=== PATIENT | male | born 1975 | race Caucasian/White ===

== ENCOUNTER 2019-09-07 09:11 | Outpatient (CLI) | payer BC, SELFPAY ==
[2019-09-07 09:29] LABS: Basophils Absolute Auto 0.04 K/mm3 (0.00-0.10); Basophils Percent Auto 0.8 % (0.0-1.0); Eosinophils Absolute Auto 0.23 K/mm3 (0.02-0.50); Eosinophils Percent Auto 4.5 % (1.0-6.0); Hematocrit 44.3 % (40.0-54.0); Hemoglobin 15.9 g/dL (14.0-18.0); Immature Granulocyte Absolute 0.03 K/mm3 (0.00-0.00); Immature Granulocyte Percent A 0.6 % (0.0-0.0); Lymphocytes Absolute Auto 1.37 K/mm3 (1.10-4.50); Mean Corpuscular HGB Conc 35.9 g/dL (32.0-36.0); Mean Corpuscular Hemoglobin 29.9 pg (27.0-31.0); Mean Corpuscular Volume 83.4 fL (78.0-102.0); Mean Platelet Volume 10.1 fl (8.7-11.0); Monocytes Absolute Auto 0.48 K/mm3 (0.10-0.90); Monocytes Percent Auto 9.4 % (2.0-11.0); Neutrophils Absolute Auto 2.9 K/mm3 (1.7-7.2); Neutrophils Percent Auto 57.7 % (50.0-70.0); Platelet Count Result 185 K/mm3 (150-420); Red Blood Count 5.31 M/mm3 (4.70-6.10); Red Cell Distribution Width 12.2 % (11.6-14.4); White Blood Count 5.1 K/mm3 (4.8-10.8)
[2019-09-07 09:30] LABS: Add Urine Microscopic? NO; Appearance Urine Clear (Clear); Bilirubin Urine Negative (Negative); Blood Urine Negative (Negative); Color Urine Yellow (Yellow); Glucose Urine UA Negative (Negative); Ketones Urine Negative (Negative); Leukocyte Esterase Ur Negative (Negative); Nitrate Urine Negative (Negative); Protein Urine Negative (Negative); Urobilinogen Urine 0.2 mg/dL (0.2-1.0)
[2019-09-07 11:11] LABS: Alanine Aminotransferase 54 U/L (16-63); Albumin Level 4.1 g/dL (3.4-5.0); Alkaline Phosphatase 84 U/L (46-116); Anion Gap 12.5 mmol/L (7-16); Aspartate Amino Transferase 26 U/L (15-37); Bilirubin,Total 0.5 mg/dL (0.00-1.00); Blood Urea Nitrogen 15 mg/dL (7-18); Calcium 8.8 mg/dL (8.5-10.1); Carbon Dioxide 30 mmol/L (21-32); Chloride 105 mmol/L (98-108); Cholesterol 178 mg/dL (0-200); Estimated Glomerular Filt Rate > 60; Glucose 103 mg/dL (70-99); HDL Direct 24 mg/dL (40-60); Osmolality Calculated 296 mOsm/kg (285-295); Potassium 4.5 mmol/L (3.5-5.1); Sodium 143 mmol/L (136-145); Thyroid Stimulating Hormone 2.28 uIU/mL (0.36-3.74); Total Protein 6.8 g/dL (6.4-8.2)
[2019-09-07 11:12] LABS: LDL Cholesterol Calculated 33 mg/dL (<130); Triglycerides 607 mg/dL (0-150)
[2019-09-07 11:13] LABS: LDL Cholesterol Direct 59 mg/dL (0-130)
== END 2019-09-07 09:12 | disposition home or self-care (01) ==
PROVIDERS: PCP Internal Medicine; Visit Provider Internal Medicine
DX: Z00.00 Encounter for general adult medical examination without abnormal findings (principal); F41.9 Anxiety disorder, unspecified; J45.909 Unspecified asthma, uncomplicated
CPT/HCPCS: 36415; 80053; 80061; 81003; 83721; 84443; 85025

== ENCOUNTER 2020-05-27 11:28 | Outpatient (CLI) | payer BC, SELFPAY ==
[2020-05-27 12:08] LABS: SARS-CoV-2 Ag Positive (Negative)
== END 2020-05-27 11:29 | disposition home or self-care (01) ==
LOC: CHSLAB 11:31
PROVIDERS: PCP Internal Medicine; Visit Provider Internal Medicine
DX: U07.1 COVID-19 (principal)
CPT/HCPCS: 87426; C9803

== ENCOUNTER 2021-12-04 08:10 | Outpatient (CLI) | payer BC, SELFPAY ==
[2021-12-04 08:29] LABS: Basophils Absolute Auto 0.03 K/mm3 (0.00-0.10); Basophils Percent Auto 0.6 % (0.0-1.0); Eosinophils Absolute Auto 0.16 K/mm3 (0.02-0.50); Eosinophils Percent Auto 3.4 % (1.0-6.0); Hematocrit 43.6 % (40.0-54.0); Hemoglobin 15.5 g/dL (14.0-18.0); Immature Granulocyte Absolute 0.01 K/mm3 (0.00-0.00); Immature Granulocyte Percent A 0.2 % (0.0-0.0); Lymphocytes Absolute Auto 1.25 K/mm3 (1.10-4.50); Lymphocytes Percent Auto 26.8 % (18.0-42.0); Mean Corpuscular HGB Conc 35.6 g/dL (32.0-36.0); Mean Corpuscular Hemoglobin 30.8 pg (27.0-31.0); Mean Corpuscular Volume 86.7 fL (78.0-102.0); Mean Platelet Volume 10.1 fl (8.7-11.0); Monocytes Absolute Auto 0.46 K/mm3 (0.10-0.90); Monocytes Percent Auto 9.9 % (2.0-11.0); Neutrophils Absolute Auto 2.8 K/mm3 (1.7-7.2); Neutrophils Percent Auto 59.1 % (50.0-70.0); Platelet Count Result 190 K/mm3 (150-420); Red Blood Count 5.03 M/mm3 (4.70-6.10); White Blood Count 4.7 K/mm3 (4.8-10.8)
[2021-12-04 08:30] LABS: Add Urine Microscopic? NO; Appearance Urine Clear (Clear); Bilirubin Urine Negative (Negative); Blood Urine Negative (Negative); Color Urine Light Yellow (Yellow); Glucose Urine UA Negative (Negative); Ketones Urine Negative (Negative); Leukocyte Esterase Ur Negative (Negative); Nitrate Urine Negative (Negative); Protein Urine Negative (Negative); Urobilinogen Urine 0.2 mg/dL (0.2-1.0)
[2021-12-04 08:55] LABS: Alanine Aminotransferase 56 U/L (16-63); Alkaline Phosphatase 75 U/L (46-116); Anion Gap 8 mmol/L (8-16); Aspartate Amino Transferase 18 U/L (15-37); Bilirubin,Total 0.4 mg/dL (0.00-1.00); Blood Urea Nitrogen 12 mg/dL (7-18); Carbon Dioxide 26 mmol/L (21-32); Chloride 108 mmol/L (98-108); Cholesterol 176 mg/dL (0-200); Estimated Glomerular Filt Rate > 60; Glucose 103 mg/dL (70-99); HDL Direct 26 mg/dL (40-60); Osmolality Calculated 293 mOsm/kg (285-295); Potassium 4.6 mmol/L (3.5-5.1); Sodium 142 mmol/L (136-145); Thyroid Stimulating Hormone 2.27 uIU/mL (0.36-3.74); Total Protein 7.2 g/dL (6.4-8.2)
[2021-12-04 09:05] LABS: LDL Cholesterol Calculated 20 mg/dL (<130); Triglycerides 648 mg/dL (0-150)
[2021-12-04 09:06] LABS: LDL Cholesterol Direct 68 mg/dL (0-130)
[2021-12-08 04:52] LABS: LH 3.4 mIU/mL (1.5-9.3)
[2021-12-08 13:20] LABS: Testosterone Free 75.2 pg/mL (35.0-155.0); Testosterone Total 374 ng/dL (250-1100)
== END 2021-12-04 08:11 | disposition home or self-care (01) ==
LOC: CHSLAB 08:13
PROVIDERS: PCP Internal Medicine; Visit Provider Internal Medicine
DX: R53.83 Other fatigue (principal); Z00.00 Encounter for general adult medical examination without abnormal findings
CPT/HCPCS: 36415; 80053; 80061; 81003; 83002; 83036; 83721; 84402; 84403; 84443; 85025

== ENCOUNTER 2022-12-20 10:44 | Outpatient (CLI) | payer BC, SELFPAY ==
[2022-12-20 10:58] LABS: Basophils Absolute Auto 0.04 K/mm3 (0.00-0.10); Basophils Percent Auto 0.8 % (0.0-1.0); Eosinophils Absolute Auto 0.19 K/mm3 (0.02-0.50); Eosinophils Percent Auto 3.7 % (1.0-6.0); Hematocrit 43.7 % (40.0-54.0); Hemoglobin 15.7 g/dL (14.0-18.0); Immature Granulocyte Absolute 0.02 K/mm3 (0.00-0.00); Immature Granulocyte Percent A 0.4 % (0.0-0.0); Lymphocytes Absolute Auto 1.27 K/mm3 (1.10-4.50); Lymphocytes Percent Auto 24.8 % (18.0-42.0); Mean Corpuscular HGB Conc 35.9 g/dL (32.0-36.0); Mean Corpuscular Hemoglobin 31.6 pg (27.0-31.0); Mean Corpuscular Volume 87.9 fL (78.0-102.0); Mean Platelet Volume 10.1 fl (8.7-11.0); Monocytes Absolute Auto 0.44 K/mm3 (0.10-0.90); Monocytes Percent Auto 8.6 % (2.0-11.0); Neutrophils Absolute Auto 3.2 K/mm3 (1.7-7.2); Neutrophils Percent Auto 61.7 % (50.0-70.0); Platelet Count Result 165 K/mm3 (150-420); Red Blood Count 4.97 M/mm3 (4.70-6.10); Red Cell Distribution Width 13.1 % (11.6-14.4); White Blood Count 5.1 K/mm3 (4.8-10.8)
[2022-12-20 11:00] LABS: Appearance Urine Clear (Clear); Bilirubin Urine Negative (Negative); Blood Urine Negative (Negative); Color Urine Light Yellow (Yellow); Glucose Urine UA Negative (Negative); Ketones Urine Negative (Negative); Leukocyte Esterase Ur Negative (Negative); Nitrate Urine Negative (Negative); Protein Urine Negative (Negative); Specific Grav Ur 1.025 (1.010-1.020); Urobilinogen Urine 0.2 mg/dL (0.2-1.0)
[2022-12-20 11:08] LABS: Hemoglobin A1C 4.8 % (<5.7)
[2022-12-20 11:28] LABS: Add Urine Microscopic? NO
[2022-12-20 11:45] LABS: Alanine Aminotransferase 63 U/L (16-63); Albumin Level 3.9 g/dL (3.4-5.0); Alkaline Phosphatase 76 U/L (46-116); Anion Gap 9 mmol/L (8-16); Aspartate Amino Transferase 20 U/L (15-37); Bilirubin,Total 0.5 mg/dL (0.00-1.00); Blood Urea Nitrogen 13 mg/dL (7-18); Calcium 9.3 mg/dL (8.5-10.1); Carbon Dioxide 29 mmol/L (21-32); Chloride 104 mmol/L (98-108); Cholesterol 193 mg/dL (0-200); Estimated Glomerular Filt Rate > 60; Glucose 114 mg/dL (70-99); HDL Direct 32 mg/dL (40-60); Osmolality Calculated 295 mOsm/kg (285-295); Potassium 4.6 mmol/L (3.5-5.1); Sodium 142 mmol/L (136-145); Thyroid Stimulating Hormone 2.43 uIU/mL (0.36-3.74); Total Protein 6.9 g/dL (6.4-8.2)
[2022-12-20 11:50] LABS: LDL Cholesterol Calculated 34 mg/dL (<130); Triglycerides 633 mg/dL (0-150)
[2022-12-20 11:55] LABS: LDL Cholesterol Direct 60 mg/dL (0-130)
== END 2022-12-20 10:45 | disposition home or self-care (01) ==
LOC: CHSLAB 10:47
PROVIDERS: PCP Internal Medicine; Visit Provider Internal Medicine
DX: Z00.00 Encounter for general adult medical examination without abnormal findings (principal); I10 Essential (primary) hypertension; R73.03 Prediabetes
CPT/HCPCS: 36415; 80053; 80061; 81003; 83036; 83721; 84443; 85025

== ENCOUNTER 2024-10-24 11:14 | Outpatient (CLI) | payer OTHER, SELFPAY ==
--- NOTE | ~2024-10-24 | XR_ITS ---
AP and lateral views of the left hip and AP view of the pelvis Clinical history: Pain Findings: No acute fracture or dislocation is seen. Osseous alignment is anatomic. Left hip joint is intact. Soft tissues are unremarkable. Impression: No significant abnormality is seen. Reviewed, dictated and finalized at [facility]. Impression: No significant abnormality is seen.
[2024-10-24 11:38] LABS: Add Urine Microscopic? NO; Appearance Urine Clear (Clear); Basophils Absolute Auto 0.04 K/mm3 (0.00-0.10); Basophils Percent Auto 0.8 % (0.0-1.0); Bilirubin Urine Negative (Negative); Blood Urine Negative (Negative); Color Urine Light Yellow (Yellow); Eosinophils Absolute Auto 0.17 K/mm3 (0.02-0.50); Eosinophils Percent Auto 3.3 % (1.0-6.0); Glucose Urine UA Negative (Negative); Hematocrit 43.3 % (40.0-54.0); Hemoglobin 15.3 g/dL (14.0-18.0); Immature Granulocyte Absolute 0.03 K/mm3 (0.00-0.00); Immature Granulocyte Percent A 0.6 % (0.0-0.0); Ketones Urine Negative (Negative); Leukocyte Esterase Ur Negative LEU/UL (Negative); Lymphocytes Absolute Auto 1.19 K/mm3 (1.10-4.50); Lymphocytes Percent Auto 23.1 % (18.0-42.0); Mean Corpuscular HGB Conc 35.3 g/dL (32-36); Mean Corpuscular Hemoglobin 30.7 pg (27.0-31.0); Mean Corpuscular Volume 86.9 fL (78.0-102.0); Mean Platelet Volume 9.7 fl (8.7-11.0); Monocytes Absolute Auto 0.48 K/mm3 (0.10-0.90); Monocytes Percent Auto 9.3 % (2.0-11.0); Neutrophils Absolute Auto 3.25 K/mm3 (1.70-7.20); Neutrophils Percent Auto 62.9 % (50.0-70.0); Nitrate Urine Negative (Negative); Platelet Count Result 205 K/mm3 (150-420); Protein Urine Negative (Negative); Red Blood Count 4.98 M/mm3 (4.70-6.10); Red Cell Distribution Width 12.9 % (11.6-14.4); Specific Grav Ur >= 1.030 (1.010-1.020); Urobilinogen Urine 0.2 mg/dL (0.2-1.0); White Blood Count 5.2 K/mm3 (4.8-10.8)
[2024-10-24 11:54] LABS: Alanine Aminotransferase 67 U/L (6-50); Albumin Level 4.2 g/dL (3.5-5.1); Alkaline Phosphatase 80 U/L (38-126); Anion Gap 5 mmol/L (4-12); Aspartate Amino Transferase 51 U/L (17-59); Bilirubin,Total 0.5 mg/dL (0.2-1.3); Blood Urea Nitrogen 13 mg/dL (9-20); Calcium 8.8 mg/dL (8.4-10.2); Carbon Dioxide 26 mmol/L (22-30); Chloride 108 mmol/L (98-107); Estimated Glomerular Filt Rate > 60; Glucose 110 mg/dL (65-110); Osmolality Calculated 289 mOsm/kg (285-295); Potassium 4.6 mmol/L (3.4-5.0); Sodium 139 mmol/L (137-145); Total Protein 6.9 g/dL (6.3-8.2)
[2024-10-24 12:12] LABS: Free T4 Free Thyroxine 0.74 ng/dL (0.78-2.19)
--- OUTSIDE RECORDS SUMMARY | 2024-10-24 12:24 | XMS_ITS | Referral Summary ---
Author Organization [facility] Address [address] [place] [address] Care Team Providers Care Blender Conveyor Operator Name Role Phone Alec Rogers MD Primary Care Provider [phone] Encounters Date Type Department Care Team Description 10/08/2024 10:39 AM CDT - 10/08/2024 11:59 PM CDT Hospital Encounter [facility] [address] [place] [id number] Left lower quadrant pain Discharge Disposition: Discharge to home or self care 09/25/2024 Orders Only [facility] Neurosurgery [address] [facility] 6th [place] [address] [place] [address] Romelia Loaiza RN Meningioma (HCC) (Primary Dx) 09/02/2024 Telephone [facility] Scheduling [address] [place] [address] Sowmya Rich from Last 3 Months Allergies No known active allergies Medications albuterol HFA (PROVENTIL HFA,VENTOLIN HFA,PROAIR HFA) 90 mcg/actuation inhaler INL 1 TO 2 PFS PO Q 4 H PRN 03/31/2020 Active LORazepam (ATIVAN) 1 mg tablet TAKE 1 TABLET BY MOUTH AT BEDTIME NEEDED 09/16/2020 Active valACYclovir (VALTREX) 500 mg tablet TAKE 1 TABLET BY MOUTH THREE TIMES DAILY FOR 5 DAYS 07/08/2020 Active escitalopram (LEXAPRO) 10 mg tablet 02/22/2021 Active losartan (COZAAR) 50 mg tablet TAKE 1 AND 1/2 TABLETS BY MOUTH AT BEDTIME 01/11/2024 Active Active Problems Problem Noted Date Diagnosed Date Meningioma 04/13/2021 Brain lesion 04/27/2020 Generalized anxiety disorder 10/05/2013 Overview (08/24/2016): GENERALIZED ANXIETY DIS Gastroesophageal reflux disease with esophagitis 10/05/2013 Overview (08/25/2016): REFLUX ESOPHAGITIS Plantar fascial fibromatosis 10/05/2013 Overview (08/25/2016): PLANTAR FIBROMATOSIS Irritable bowel syndrome 10/05/2013 Overview (08/25/2016): IRRITABLE BOWEL SYNDROME Pure hyperglyceridemia 10/05/2013 Overview (08/25/2016): PURE HYPERGLYCERIDEMIA Carbuncle of skin or subcutaneous tissue 014 Overview (08/26/2016): CARBUNCLE NOS History of disorder of central nervous system Overview (08/26/2016): Personal history of subdural hematoma Immunizations Immunization Administration Dates Next Due Tdap 07/26/2007 Social History Tobacco Use Types Packs/Day Years Used Date Smoking Tobacco: Never Smokeless Tobacco: Never Tobacco Cessation:Counseling Given: Yes Comments:pt needs counseling, pt still smokes a few cigarettes every week. Alcohol Use Standard Drinks/Week Comments Yes 70 (1 standard drink = 0.6 oz pu re alcohol) AUDIT-C Answer Date Recorded Q1: How often do you have a drink containing alcohol? 4 or more times a week 04/13/2021 Q2: How many drinks containi ng alcohol do you have on a typical day when you are drinking? 10 or more Q3: How often do you have si x or more drinks on one occasion? 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 Gender Identity Not on file Sexual Orientation Not on file Occupation Industry Job Start Date Job End Date currently employed Not on file Not on file Not on fi le Last Filed Vital Signs Vital Sign Reading Time Taken Comments Blood Pressure 140/94 08/10/2021 4:15 PM CDT Pulse 60 08/10/2021 4:15 PM CDT Temperature 36.7 C (98 F) 08/10/2021 4:15 PM CDT Respiratory Rate 16 08/10/2021 4:15 PM CDT Oxygen Saturation 96% 08/10/2021 4:15 PM CDT Inhaled Oxygen Concentration - - Weight 133.4 kg (294 lb) 01/11/2024 7:22 PM CDT Height 180.3 cm (5' 11) 01/11/2024 7:22 PM CDT Body Mass Index 41 01/11/2024 7:22 PM CDT Plan of Treatment Not on file Procedures Procedure Name Priority Date/Time Associated Diagnosis Comments CT ABDOMEN PELVIS WO CONTRAST Schedule Routine, Read Routine (OP Routine) 10/08/2024 11:02 AM CDT Left lower quadrant pain COLONOSCOPY REPORT 03/20/2015 from Last 3 Months or Most Recently Relevant to Health Maintenance Results * CT Abdomen Pelvis WO Contrast (10/08/2024 11:02 AM CDT) Anatomical Region Laterality Modality Body N/A Computed Tomogra phy 10/08/2024 3:04 PM CDT Narrative 10/08/2024 3:09 PM CDT EXAM DESCRIPTION: CT ABDOMEN PELVIS WO CONTRAST REASON FOR STUDY: LLQ pain Pt states he was stepping up into his truck on Monday and felt a pulling in his LLQ that radiates into his left testicle. Pt is also feeling nauseated due to the discomfort. TECHNIQUE: CT scan of the abdomen and pelvis performed without intravenous and without oral contrast using helical scanning technique. Reconstructed coronal and sagittal MPR images reviewed. All images stored on PACS. Automated exposure control was used as a dose optimization technique for this examination. COMPARISON: None FINDINGS: The sensitivity for detection of visceral lesions is diminished without the use of intravenous contrast. LOWER CHEST: The heart size is upper limits of normal. There is no definite evidence of a pericardial effusion. There minimal atherosclerotic changes of the aorta. There is a minimal bibasilar subsegmental atelectasis. There is a calcified granuloma in the left lower lobe. There is small hiatal hernia. LIVER: There is diffuse hepatic steatosis with hepatomegaly. GALLBLADDER: The gallbladder is contracted, which limits its evaluation. BILE DUCTS: No intrahepatic or extrahepatic ductal dilatation. SPLEEN: There is splenomegaly measuring 15.3 cm in the craniocaudal dimension. PANCREAS: The pancreas has a grossly unremarkable unenhanced CT appearance. ADRENALS: The bilateral adrenal glands are grossly symmetrical and unremarkable. KIDNEYS/URINARY TRACT: There is no definite unenhanced CT evidence of a focal renal lesion. There is no definite evidence of nephrolithiasis. There is no definite evidence of hydronephrosis or hydroureter. There is subtle mild periureteric fat stranding involving the distal bilateral ureters, which is mildly greater on the left than the right. There is circumferential mucosal thickening of the urinary bladder. The prostate gland measures 4.7 cm. GI: There is no definite evidence of a bowel obstruction. There is an air-filled appendix identified without definite evidence of pericecal or periappendiceal inflammatory changes to suggest appendicitis. There is mild diffuse mucosal thickening of the colon. There are small bilateral fat containing inguinal hernias. There is no definite evidence free air or fluid in the abdomen and pelvis. There is no definite unenhanced CT evidence of lymphadenopathy in the abdomen and pelvis. MUSCULOSKELETAL: There is a mild dextroscoliotic curvature of the spine with mild degenerative changes. OTHER: No other abnormality. IMPRESSION: No definite evidence of obstructive uropathy or nephrolithiasis. Subtle mild periureteric fat stranding involving the distal bilateral ureters, which is mildly greater on the left than the right, which raises the concern for ascending urinary tract infection. Clinical correlation with urinary analysis is recommended as clinically indicated. Circumferential mucosal thickening of the urinary bladder, which may be related to underdistention versus cystitis. This can be further evaluated with aforementioned follow-up urinary analysis. No definite evidence of bowel obstruction. Mild diffuse mucosal thickening of the colon, which is likely related to underdistention or chronic diverticulosis and less likely mild colitis of infectious or inflammatory etiology. Diffuse hepatic steatosis with hepatosplenomegaly. Normal appendix. THIS IS AN ELECTRONICALLY VERIFIED FINAL REPORT 10/08/2024 3:09 PM - Electronically signed by Martha Peña D.O. PS: PS Report ID: [id number] Reading Location: [id number] Procedure Note Martha Peña, DO - 10/08/2024 EXAM DESCRIPTION: CT ABDOMEN PELVIS WO CONTRAST REASON FOR STUDY: LLQ pain Pt states he was stepping up into his truck on Monday and felt a pullingin his LLQ that radiates into his left testicle. Pt is also feeling nauseateddue to the discomfort. TECHNIQUE: CT scan of the abdomen and pelvis performed without intravenousand without oral contrast using helical scanning technique. Reconstructed coronal and sagittal MPR images reviewed. All images stored on PACS.Automated exposure control was used as a dose optimization technique for this examination. COMPARISON: None FINDINGS: The sensitivity for detection of visceral lesions is diminished withoutthe use of intravenous contrast. LOWER CHEST: The heart size is upper limits of normal. There is nodefinite evidence of a pericardial effusion. There minimal atherosclerotic changesof the aorta. There is a minimal bibasilar subsegmental atelectasis. Thereis a calcified granuloma in the left lower lobe. There is small hiatal hernia. LIVER: There is diffuse hepatic steatosis with hepatomegaly. GALLBLADDER: The gallbladder is contracted, which limits its evaluation. BILE DUCTS: No intrahepatic or extrahepatic ductal dilatation. SPLEEN: There is splenomegaly measuring 15.3 cm in the craniocaudal dimension. PANCREAS: The pancreas has a grossly unremarkable unenhanced CTappearance. ADRENALS: The bilateral adrenal glands are grossly symmetrical and unremarkable. KIDNEYS/URINARY TRACT: There is no definite unenhanced CT evidence of a focal renal lesion. There is no definite evidence of nephrolithiasis.There is no definite evidence of hydronephrosis or hydroureter. There is subtle mild periureteric fat stranding involving the distal bilateral ureters,which is mildly greater on the left than the right. There is circumferential mucosal thickening of the urinary bladder. The prostate gland measures4.7 cm. GI: There is no definite evidence of a bowel obstruction. There is an air-filled appendix identified without definite evidence of pericecal or periappendiceal inflammatory changes to suggest appendicitis. There ismild diffuse mucosal thickening of the colon. There are small bilateral fat containing inguinal hernias. There is no definite evidence free air orfluid in the abdomen and pelvis. There is no definite unenhanced CT evidence of lymphadenopathy in the abdomen and pelvis. MUSCULOSKELETAL: There is a mild dextroscoliotic curvature of the spinewith mild degenerative changes. OTHER: No other abnormality. IMPRESSION: No definite evidence of obstructive uropathy or nephrolithiasis. Subtle mild periureteric fat stranding involving the distal bilateral ureters, which is mildly greater on the left than the right, which raisesthe concern for ascending urinary tract infection. Clinical correlation with urinary analysis is recommended as clinically indicated. Circumferential mucosal thickening of the urinary bladder, which may be related to underdistention versus cystitis. This can be further evaluatedwith aforementioned follow-up urinary analysis. No definite evidence of bowel obstruction. Mild diffuse mucosal thickening of the colon, which is likely related to underdistention or chronic diverticulosis and less likely mild colitis of infectious or inflammatory etiology. Diffuse hepatic steatosis with hepatosplenomegaly. Normal appendix. THIS IS AN ELECTRONICALLY VERIFIED FINAL REPORT 10/08/2024 3:09 PM - Electronically signed by Martha Peña D.O. PS: PS Report ID: [id number] Reading Location: [place] [address] Johnathan Wyatt MD IMG CT PROCEDURES Final Res ult * COLONOSCOPY REPORT (03/20/2015) Anatomical Region Laterality Modality Other Narrative 03/20/2015 Ordered by an unspecified provider. Historical Provider GI PROCEDURE ORDERABLES F inal Result from Last 3 Months or Most Recently Relevant to Health Maintenance Insurance [facility] [employer] COMPENSATION GENERIC Care Teams Blender Conveyor Operator Relationship Specialty Start Date End Date Alec Rogers MD PCP - General Internal Medicine 04/02/20
--- OUTSIDE RECORDS SUMMARY | 2024-10-24 12:24 | XMS_ITS | Encounter Summary ---
Author Organization [facility] Healthcare Address [address] [place] [address] Care Team Providers Care Advertising Manager Name Role Phone Alec Rogers MD Primary Care Provider [phone] Encounter Details Date Type Department Care Team (Late st Contact Info) Description 10/06/2020 [address] [facility] Radiology [address] [place] [address] Ruben Prieto MD PhD [address] [place] [address] Social History Tobacco Use Types Packs/Day Years Used Date Smoking Tobacco: Never Smokeless Tobacco: Never Alcohol Use Standard Drinks/Week Comments Yes 70 (1 standard drink = 0.6 oz pu re alcohol) Sex and Gender Information Value Date Recorded Sex Assigned at Not on file 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
--- OUTSIDE RECORDS SUMMARY | 2024-10-24 12:24 | XMS_ITS | Clinical Summary ---
Author Organization [facility] Address [address] [place] [address] Care Team Providers Care Welding Instructor Name Role Phone Alec Rogers MD Primary Care Provider Allergies No known active allergies Medications albuterol [...] Overview (08/26/2016): Personal history of subdural hematoma Encounters Date Type Department Care Team Description 10/08/2024 10:39 AM CDT - 10/08/2024 11:59 PM CDT Hospital Encounter [facility] [address] [place] [id number] Left lower quadrant pain Discharge Disposition: Discharge to home or self care 09/25/2024 Orders Only [facility] Neurosurgery [address] [facility] 6th [place] [address] [place] [id number] Romelia Loaiza RN Meningioma (HCC) (Primary Dx) 09/02/2024 Telephone [facility] Scheduling [address] [place] [address] Sowmya Rich from Last 3 Months Immunizations Immunization Administration Dates Next Due Tdap 07/26/2007 Surgical History Surgery Date Site/Laterality Comments WISDOM TOOTH EXTRACTION Medical History Medical History Date Comments Hx Other Medical 2007 staph infection Depression Generalized headaches Shortness of breath Hypertension Family History Medical History Relation Name Comments Depression Father Diabetes Father Diabetes mellit us; Hypertension Father Cancer Maternal Grandfather Hypertension Maternal Grandfather Anxiety disorder Mother Anxiety; Hypertension Mother Hypertension Paternal Grandmother Relation Name Status Comments Father Alive Maternal Grandfather Mother Alive Paternal Grandmother Social History Tobacco Use Types Packs/Day Years [...] on file Legal Sex Male 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[employer] Gender Identity Not on file Sexual Orientation Not on file Occupation Industry Job Start Date Job End Date currently employed Not on file Not on file Not on fi le Obstetrics History Last Filed Vital Signs Vital Sign Reading [...] 01/11/2024 7:22 PM CDT Plan of Treatment Health Maintenance Due Date Last Done Comments Depression Screening 1975 Hepatitis C Screening 1975 Hepatitis B Screening 1993 Regular Well Visit/Exam 18-64 1993 DTaP/Tdap/Td Vaccine (2 - Td or Tdap) 07/25/2017 07/26/2007 Influenza Vaccine (Season Ended) 2025 Colon Cancer Screening-Colonoscopy 03/20/2025 03/20/2015, 09/10/2010 Pneumococcal vaccine <65 Aged Out No longer eligible based on patient's age to complete this topic Procedures Procedure Name Priority Date/Time Associated Diagnosis [...] Martha Peña D.O. PS: PS Report ID: [id number] Reading Location: [id number] Procedure Note Martha Peña, DO - 10/08/2024 [...] Martha Peña D.O. PS: PS Report ID: [id number] Reading Location: [place] [address] Johnathan Wyatt MD IMG CT PROCEDURES Final Res ult * COLONOSCOPY REPORT (03/20/2015) Anatomical Region Laterality Modality Other Narrative 03/20/2015 Ordered by an unspecified provider. Historical Provider GI PROCEDURE ORDERABLES F inal Result from Last 3 Months or Most Recently Relevant to Health Maintenance Insurance [facility] CHO[facility] PL[facility] H[facility]PPO Address: [address] [address] [place] [address] [facility] CHOICE PLUS [facility] H[facility]/PPO Address: [facility] [id number] [place] [address] WORKERS COMPENSATION GENERIC Care Teams Welding Instructor Relationship Specialty Start Date End Date Alec Rogers MD PCP - General Internal Medicine 04/02/20
--- OUTSIDE RECORDS SUMMARY | 2024-10-24 12:24 | XMS_ITS | Encounter Summary ---
Author Organization [facility] Healthcare Address [address] [place] [address] Care Team Providers Care Display Trimmer Name Role Phone Alec Rogers MD Primary Care Provider [phone] Encounter Details Date Type Department Care Team (Late st Contact Info) Description 06/04/2020 Telephone [facility] Radiology [address] [place] [address] Ruben Prieto MD PhD [address] [place] [address] Social History Tobacco Use Types Packs/Day Years Used Date Smoking Tobacco: Every Day Cigarettes Alcohol Use Standard Drinks/Week Comments Yes 70 (1 standard drink = 0.6 oz pu re alcohol) Sex and Gender Information Value Date Recorded Sex Assigned at Not on file 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
[2024-10-24 12:26] LABS: Free T3 4.45 pg/mL (2.18-3.98)
[2024-10-28 12:49] LABS: Thyroid Peroxidase Antibodies <1 IU/mL (<9)
[2024-10-29 19:48] LABS: Thyroid Stimulating Immunoglob <89 % baseline (<140)
== END 2024-10-24 11:15 | disposition home or self-care (01) ==
PROVIDERS: PCP Internal Medicine; Visit Provider Internal Medicine
DX: M25.552 Pain in left hip (principal)
CPT/HCPCS: 36415; 73502; 80053; 81003; 84439; 84443; 84445; 84481; 85025; 86376